=== PATIENT | male | born 1960 | race Caucasian/White ===

== ENCOUNTER 2017-03-01 15:46 | Emergency (ER) | payer BC, SELFPAY | END 2017-03-01 16:49 | disposition home or self-care (01) | PROVIDERS: Emergency Provider Nurse Practitioner Family; Family Provider Family Medicine; Visit Provider Nurse Practitioner Family | DX: J06.9 Acute upper respiratory infection, unspecified (principal); E78.5 Hyperlipidemia, unspecified; E07.9 Disorder of thyroid, unspecified; Z79.899 Other long term (current) drug therapy | CPT/HCPCS: 99201 ==

== ENCOUNTER → 2017-05-17 16:32 | Outpatient (CLI) | payer BC, SELFPAY ==
--- NOTE | 2017-05-17 | XR_ITS ---
XR foot LT min 3V HISTORY: ITS.REASON: PAIN IN LEFT FOOT ORDERING PHYSICIAN: Salbador Triana MD PATIENT AGE: 56 years COMPARISON: None FINDINGS: No fracture or dislocation. No lytic or blastic change. There is normal mineralization.. There is minimal osteoarthritic change at the first metatarsophalangeal joint with mild bony hypertrophy and a small spur along the dorsal and distal aspect of the first metatarsal. Normal alignment. IMPRESSION: Mild osteoarthritic change of the first metatarsophalangeal joint otherwise negative left foot
--- NOTE | 2017-05-17 | XR_ITS ---
XR foot RT min 3V HISTORY: ITS.REASON: PAIN IN RIGHT FOOT ORDERING PHYSICIAN: Salbador Triana MD PATIENT AGE: 56 years COMPARISON: None FINDINGS: No fracture or dislocation. No lytic or blastic change. There is normal mineralization.. Mild osteoarthritic changes are present at the first metatarsophalangeal joint with mild bony spurring and some decrease in the joint space. Normal alignment. IMPRESSION: Mild osteoarthritis of the first metatarsophalangeal joint otherwise negative right
== END ==
PROVIDERS: PCP Family Medicine; Visit Provider Family Medicine
DX: M79.671 Pain in right foot (principal); M79.672 Pain in left foot
CPT/HCPCS: 73630

== ENCOUNTER → 2019-01-06 14:55 | Outpatient (POV) | payer BC, SELFPAY | PROVIDERS: Visit Provider Dermatology | DX: Z00.00 Encounter for general adult medical examination without abnormal findings (principal) ==

== ENCOUNTER → 2019-02-17 15:20 | Outpatient (POV) | payer BC, SELFPAY | PROVIDERS: Visit Provider Dermatology | DX: Z00.00 Encounter for general adult medical examination without abnormal findings (principal) ==

== ENCOUNTER → 2019-03-05 15:51 | Outpatient (CLI) | payer BC, SELFPAY ==
--- NOTE | 2019-03-05 15:55 | XR_ITS ---
PROCEDURE: XR SHOULDER LT MIN 2V CLINICAL INDICATION: LT SHOULDER PAIN COMPARISON: No exams were available for comparison FINDINGS: Minimal osteoarthritic changes are present involving the acromioclavicular joint and glenohumeral joint. There is mild hypertrophic change along the inferior aspect of the distal clavicle with mild subacromial stenosis. No fracture or dislocation IMPRESSION: Mild osteoarthritic change with subacromial stenosis Dictated by: Trae Cordero MD 03/06/2019 18:20 Electronically signed by Trae Cordero MD in [place] 03/06/2019 18:20
== END ==
PROVIDERS: PCP Family Medicine; Visit Provider Family Medicine
DX: M25.512 Pain in left shoulder (principal)
CPT/HCPCS: 73030

== ENCOUNTER → 2019-09-22 15:29 | Outpatient (CLI) | payer BC, SELFPAY ==
--- NOTE | 2019-09-22 15:38 | XR_ITS ---
PROCEDURE: XR CERVICAL SPINE 5V CLINICAL INDICATION: DISORDER OF NECK, PAIN IN LEFT ARM COMPARISON: No exams were available for comparison FINDINGS: Normal alignment. No fracture or dislocation. Small endplate osteophytes are present at C4 and C5 with slight decrease in the disc space at C4-C5 and C5-C6. No obvious foraminal narrowing. IMPRESSION: Mild cervical spondylosis Dictated by: Trae Cordero MD 09/22/2019 16:18 Electronically signed by Trae Cordero MD in [place] 09/22/2019 16:18
== END ==
PROVIDERS: PCP Family Medicine; Visit Provider Family Medicine
DX: M53.82 Other specified dorsopathies, cervical region (principal); M79.602 Pain in left arm
CPT/HCPCS: 72050

== ENCOUNTER → 2019-12-19 09:11 | Outpatient (CLI) | payer BC, SELFPAY ==
--- NOTE | 2019-12-19 | MR_ITS ---
PROCEDURE: MR CERVICAL SPINE WO CON CLINICAL INDICATION: Left-sided neck pain COMPARISON: DX XR CERVICAL SPINE 5V from 09/22/2019 TECHNIQUE: Standard multiplanar multiecho sequences are performed without contrast. 3-D MIP and myelographic images are also rendered and reviewed FINDINGS: There is slight reversal of the cervical lordosis. This could be due to patient positioning or muscle spasm. Craniocervical junction has an unremarkable appearance. C2-C3: Unremarkable. C3-C4: Unremarkable. C4-C5: Minimal spurring anteriorly with minimal uncovertebral hypertrophy on the right and minimal right-sided foraminal narrowing. C5-C6: Unremarkable. C6-C7: Unremarkable. C7-T1: Unremarkable. IMPRESSION: 1. There is straightening/reversal of the normal lordosis which may be due to patient positioning or muscle spasm. 2. Minimal spurring anteriorly at C4-C5 with minimal right-sided uncovertebral hypertrophy and minimal right-sided foraminal narrowing. 3. No canal stenosis or extruded herniated disc. Dictated by: Trae Cordero MD 12/20/2019 10:56 Trae Cordero MD in [place] 12/20/2019 10:56
== END ==
PROVIDERS: PCP Family Medicine; Visit Provider Family Medicine
DX: M53.82 Other specified dorsopathies, cervical region (principal); M79.602 Pain in left arm; M47.812 Spondylosis without myelopathy or radiculopathy, cervical region
CPT/HCPCS: 72141; 76376

== ENCOUNTER → 2020-02-01 07:20 | Outpatient (CLI) | payer BC, SELFPAY ==
[2020-02-01 08:51] LABS: Coronavirus 19 IgG Antibody Negative (Negative); Coronavirus 19 IgM Antibody Negative (Negative)
== END ==
PROVIDERS: Visit Provider Surgery
DX: Z01.818 Encounter for other preprocedural examination (principal); Z12.11 Encounter for screening for malignant neoplasm of colon
CPT/HCPCS: 36415; 86328

== ENCOUNTER 2020-02-02 08:23 | Day surgery (SDC) | payer BC, SELFPAY ==
[2020-01-29 14:29] VITALS: BMI 24.6
[2020-02-02 08:41] VITALS: BP 148/94; PULSE 94; RESP 18; TEMP 36.3; O2SAT 97
--- NOTE | 2020-02-02 09:15 | HMH.ANESCL ---
[facility] Anesthesia Checklist - Patient Identification Patient Identification: Arm Band, Verbal (Name & ) - Structural Data Admitted From: Home Planned Operative Procedure/s: Colonoscopy Consent for Planned Operative Procedure(s) Verified: Yes Verified Documents: Surgical Consent, History and Physical - NPO Status Verified Time NPO: 00:00 - Chart Verification Results Verified: BMP - Additional verifications Anesthesia Reactions: No - Airway Assessment C-Spine Mobility Assessed: Yes TMJ Mobility Assessed: Yes Dentition: Good Dentition - Neurological Assessment Level of Consciousness: Awake, Alert, Appropriate, Follows Commands Hx Seizures: No Numbness or tingling in extremities: No - Anesthesia Plan Anesthesia Risk discussed: Yes Anesthesia Plan: Verified ASA Class: II Anesthesia Type: MAC [facility] History I have reviewed the patient's past medical history: Yes Medical History: Reports:: Hyperlipidemia Denies:: Cancer, Diabetes Mellitus Type 1, Diabetes Mellitus Type 2, Internal Pacemaker, MRSA, Seizures *Have you ever received a pneumonia vaccine?: No *Have you received a flu vaccine this season?: Yes Other Medical History: Reports: Hypothyroidism, Thyroid Disease Anesthesia experience/problems:: None Other Surgeries: Yes: Colonoscopy. No: Pacemaker Amputation: No Fractures: No - *Social History Last grade of school completed: Advanced degree Smoking Status: Never smoker Alcohol Intake: current Alcohol Intake Frequency:: a few times a week Substance Use Type: denies use *Occupational Status:: employed Housing: house Household Members: none *Travel in the last 8 weeks: None Family Hx:: No significant family history
[2020-02-02 09:45] VITALS: O2SAT 97
[2020-02-02 10:08] VITALS: BP 103/68; PULSE 86; RESP 12; TEMP 36.4; O2SAT 96
--- NOTE | 2020-02-02 10:08 | HMH.SCOPE ---
- Procedure: Date: 02/02/20 Patient Date of :: 1960 Procedure Performed:: Total colonoscopy to terminal ileum Indications:: Patient is a 59-year-old male referred by Salbador Triana MD for follow-up colonoscopy. I performed his initial colonoscopy in 2013. He had some biopsies performed. He does have a family history of colon cancer in his grandmother. I recommended 5-year follow-up colonoscopy. He is without complaints. Performing Provider:: Kavon Gómez MD Referring Provider:: Salbador Triana MD Sedation:: MAC sedation Procedure:: Patient was taken to the endoscopy procedure room. He was positioned in a lateral decubitus position. Adequate intravenous sedation was achieved with anesthesia titration of propofol. Digital examination was performed which revealed normal sphincter tone and unremarkable prostate. Variable stiffness Olympus colonoscope was inserted via the anus. It was advanced to the cecum. Colonic preparation was good and visualization was good. Ileocecal valve and appendiceal orifice were clearly identified. Colonoscope was advanced a short distance into the terminal ileum which is grossly normal. Colonoscope was slowly withdrawn through the colon with careful surveillance. He had some degree of pandiverticulosis with most significant diverticulosis in the sigmoid colon. At about 35 cm from the anal verge there was noted to be diverticulum with impacted stool which appeared noninflamed. Colonoscope was withdrawn into the rectum and retroflexion revealed internal anal papillae but no pathologic internal hemorrhoids. Colonoscope was withdrawn. Findings:: Diverticulosis Recommendations:: Likely repeat colonoscopy 5 years given family history Complications:: None immediately apparent Estimated blood obtained (mL): 0
[2020-02-02 10:18] VITALS: BP 120/69; PULSE 86; RESP 16; O2SAT 97
[2020-02-02 10:28] VITALS: BP 139/85; PULSE 80; RESP 16; O2SAT 98
[2020-02-02 10:38] VITALS: BP 145/96; PULSE 76; RESP 16; TEMP 36.4; O2SAT 98
== END 2020-02-02 10:40 | disposition home or self-care (01) ==
LOC: OUTP 08:24
PROVIDERS: PCP Family Medicine; Visit Provider Surgery
PROC: 0DJD8ZZ Inspection of Lower Intestinal Tract, Via Natural or Artificial Opening Endoscopic (ICD-10-PCS; CPT 45378; principal; 2020-02-02 09:30)
DX: Z12.11 Encounter for screening for malignant neoplasm of colon (principal); K57.30 Diverticulosis of large intestine without perforation or abscess without bleeding
CPT/HCPCS: 45378

== ENCOUNTER → 2020-03-15 11:01 | Outpatient (POV) | payer BC, SELFPAY | PROVIDERS: Visit Provider Dermatology | DX: Z00.00 Encounter for general adult medical examination without abnormal findings (principal) ==

== ENCOUNTER 2020-03-16 14:00 | Outpatient (RCR) | payer BC, SELFPAY | END 2020-03-16 14:05 | disposition home or self-care (01) | LOC: PT 14:00 | PROVIDERS: PCP Family Medicine; Visit Provider Family Medicine | DX: M48.02 Spinal stenosis, cervical region; M53.82 Other specified dorsopathies, cervical region; M47.812 Spondylosis without myelopathy or radiculopathy, cervical region | CPT/HCPCS: 97010; 97012; 97014; 97110; 97163; G0283 ==

== ENCOUNTER 2020-03-23 17:34 | Emergency (ER) | payer BC, SELFPAY ==
[2020-03-23 17:35] VITALS: BP 158/105; PULSE 116; RESP 16; TEMP 36.7; O2SAT 98; BMI 25.0
--- NOTE | 2020-03-23 18:03 | HMH.EDUTC ---
[facility] [place] Clinical Impression: Exposure to COVID-19 virus Sinusitis Qualifiers: Sinusitis location: unspecified location Chronicity: acute Recurrence: non-recurrent Qualified Code(s): J01.90 - Acute sinusitis, unspecified Disposition: Home, Self-Care Condition on Discharge: Good Instructions: Sinusitis, DI for Sinusitis, DI for COVID-19 (Suspected or Confirmed ), Preventing the Spread of Coronavirus Discharge Instructions Additional Instructions: Drink plenty of fluids. Take tylenol or ibuprofen for pain or fever. Take the medications as directed. Follow up with your regular doctor. GO TO THE ER FOR ANY WORSENING SYMPTOMS Prescriptions: Benzonatate [Tessalon Perle 100mg Cap] 100 mg PO TIDP PRN #30 cap PRN Reason: Cough Transmission Status: Received by [facility] Azithromycin [Z-Vic 250mg Tab*] 250 mg PO UD DOSE PK #6 tab Transmission Status: Re[facility] by [facility] Referrals: Salbador Triana MD [Primary Care Provider] - Time of Disposition: 18:16 Medical Decision Making - Medical Records Medical records reviewed: No: I reviewed the patient's medical records. - Loyd Inquiry Pt receiving controlled substance: No Vital Signs: 03/23/20 17:35 03/23/20 18:22 Temperature 98.1 F 98.1 F Temperature Source Oral Oral Pulse Rate 116 H Pulse Rate [Right] 116 H Respiratory Rate 16 16 Blood Pressure 158/105 H Blood Pressure [Right Arm] 158/105 H Blood Pressure Mean [Right Arm] 122 02 Sat by Pulse Oximetry 98 Oxygen Delivery Method Room Air [facility] [place] - General Stated complaint: Achy;Fever earlier;Cough Time Seen by Provider: 03/23/20 18:03 Mode of Arrival: Ambulatory Source of Information: Patient Description of Symptoms (Recalled from Triage Doc. by RN): pt request Covid test. pt c/o fever and fatigue HEENT Symptoms (Recalled from RN notes): No Resp Symptoms (Recalled from RN notes): Yes Skin Symptoms (Recalled from RN notes): No MS Symptoms (Recalled from RN notes): No Functional Status (Recalled from RN notes): wnl - History of Present Illness Provider Complaint: He states that since yesterday he has had low grade fever, chills, scratchy sore throat and sinus congestion. - Related Data Home Medications Medication Instructions Recorded Confirmed atorvastatin 40 mg tablet 40 mg PO DAILY tab 01/08/20 01/29/20 levothyroxine 50 mcg tablet 50 mcg PO DAILY tab 01/08/20 01/29/20 Sodium, Potassium,Mag Sulfates See Rx Instructions PO .COMPLEX 01/29/20 01/29/20 [Suprep Bowel Prep Kit] Previous Rx's Medication Instructions Recorded Azithromycin [Z-Vic 250mg Tab*] 250 mg PO UD DOSE PK #6 tab 03/23/20 Benzonatate [Tessalon Perle 100mg 100 mg PO TIDP PRN #30 cap 03/23/20 Cap] Allergies Allergy/AdvReac Type Severity Reaction Status Date / Time No Known Allergies Allergy Verified 01/29/20 14:29 - Worker's Comp Is this a Worker's Comp case?: No Is this an H Worker's Comp?: No Is this a Melva Worker's Comp?: No [facility] History - Hepatitis A Screen Drug use history?: No High risk sexual behaviors?: No History of sexually transmitted infection?: No Currently employed?: No Childcare worker?: No Do you have indoor plumbing?: Yes Do you have electricity?: Yes Attestation statement:: This patient has been screened for Hepatitis A risk factors. I have reviewed the patient's past medical history: Yes Medical History: Reports:: Hyperlipidemia Denies:: Cancer, Diabetes Mellitus Type 1, Diabetes Mellitus Type 2, Internal Pacemaker, MRSA, Seizures Other Medical History: Reports: Hypothyroidism, Thyroid Disease Other Surgeries: Yes: Colonoscopy. No: Pacemaker Amputation: No Fractures: No - Social History Smoking Status: Never smoker Alcohol Intake: current Alcohol Intake Frequency:: a few times a week Substance Use Type: denies use Occupational Status: employed Housing: house Household Members: none Family Hx:: No significant fam
[2020-03-23 18:22] VITALS: BP 158/105; PULSE 116; RESP 16; TEMP 36.7; O2SAT 98
--- NOTE | 2020-03-24 09:20 | PC.NURSE ---
patient informed of positive covid test
== END 2020-03-23 18:23 | disposition home or self-care (01) ==
PROVIDERS: Emergency Provider Nurse Practitioner Family; PCP Family Medicine
DX: U07.1 COVID-19 (principal); J01.90 Acute sinusitis, unspecified; E78.5 Hyperlipidemia, unspecified; E03.9 Hypothyroidism, unspecified; Z79.899 Other long term (current) drug therapy
CPT/HCPCS: 99202; G0463; U0003

== ENCOUNTER → 2020-11-15 16:08 | Outpatient (POV) | payer BC, SELFPAY | PROVIDERS: Visit Provider Dermatology | DX: Z00.00 Encounter for general adult medical examination without abnormal findings (principal) ==

== ENCOUNTER → 2020-12-15 14:47 | Outpatient (CLI) | payer BC, SELFPAY | PROVIDERS: PCP Family Medicine; Visit Provider Nurse Practitioner | DX: Z20.822 Contact with and (suspected) exposure to COVID-19 (principal) | CPT/HCPCS: C9803; U0003; U0005 ==

== ENCOUNTER → 2021-08-01 15:11 | Outpatient (POV) | payer BC, SELFPAY | PROVIDERS: Visit Provider Dermatology | DX: Z00.00 Encounter for general adult medical examination without abnormal findings (principal) ==

== ENCOUNTER 2021-12-28 15:00 | Outpatient (RCR) | payer BC, SELFPAY | END 2021-12-28 15:05 | disposition home or self-care (01) | LOC: OT 15:00 | PROVIDERS: PCP Family Medicine; Visit Provider Orthopaedic Surgery Adult Reconstructive Orthopaedic Surgery | DX: M75.101 Unspecified rotator cuff tear or rupture of right shoulder, not specified as traumatic (principal); M25.511 Pain in right shoulder | CPT/HCPCS: 97010; 97014; 97110; 97140; 97164; 97166; G0283 ==

== ENCOUNTER 2022-02-02 14:42 | Emergency (ER) | payer BC, SELFPAY ==
--- NOTE | 2022-02-02 15:09 | EXP.UTC ---
Discharge Plan Disposition Patient Disposition: Home, Self-Care Condition: Good Prescriptions Prescriptions: New benzonatate [benzonatate] 100 mg capsule 100 mg PO TIDP PRN (Reason: Cough) Qty: 30 0RF oseltamivir [Tamiflu] 75 mg capsule 75 mg PO BID Qty: 10 0RF ondansetron 4 mg Tablet,Disintegrating 4 mg PO Q8H PRN (Reason: Nausea) Qty: 12 0RF No Action levothyroxine 50 mcg tablet 50 mcg PO DAILY atorvastatin 40 mg tablet 40 mg PO DAILY sodium,potassium,mag sulfates 177 ML recon soln See Rx Instructions PO .COMPLEX Rx Instructions: DILUTE; drink full amount early evening before AND next morning at least 2 hr before procedure; follow w 960 mL water PO azithromycin 250 MG tablet 250 mg PO UD DOSE PK Qty: 6 0RF Rx Instructions: Take two (2) tablets today, then one (1) tablet days #2 thru #5 benzonatate 100 MG capsule 100 mg PO TIDP PRN (Reason: Cough) Qty: 30 0RF Referrals Follow up/Referrals: Jg Arellano MD [Primary Care Provider] - See instructions Activity Restrictions/Add. Instructions Additional Instructions/Restrictions: Drink plenty of fluids. Take tylenol or ibuprofen for pain or fever. Take the medications as directed. Follow up with your regular doctor. GO TO THE ER FOR ANY WORSENING SYMPTOMS Clinical Impressions Clinical Impression: Influenza A Instructions Patient Instructions: DI for Influenza -- Adult, Oseltamivir Discharge ED Provider: Ty Montez [facility] General Stated complaint: covid test Time Seen by Provider: 02/02/22 15:09 History of Present Illness Provider Complaint: He states that for the past 1 day he has had body aches, chills, fever and malaise. Related Data Home Medications Medication Instructions Recorded Confirmed atorvastatin 40 mg tablet 40 mg PO DAILY Cholesterol 01/08/20 01/29/20 levothyroxine 50 mcg tablet 50 mcg PO DAILY thyroid 01/08/20 01/29/20 sodium,potassium,mag sulfates 17.5 See Rx Instructions PO .COMPLEX 01/29/20 01/29/20 gram-3.13 gram-1.6 gram oral soln bowel prep Previous Rx's Medication Instructions Recorded azithromycin 250 mg tablet 250 mg PO UD DOSE PK #6 tabs 03/23/20 benzonatate 100 mg capsule 100 mg PO TIDP PRN Cough #30 caps 03/23/20 benzonatate 100 mg capsule 100 mg PO TIDP PRN Cough #30 caps 02/02/22 ondansetron 4 mg disintegrating 4 mg PO Q8H PRN Nausea #12 tabs 02/02/22 tablet oseltamivir 75 mg capsule (Tamiflu) 75 mg PO BID #10 caps 02/02/22 Allergies Allergy/AdvReac Type Severity Reaction Status Date / Time No Known Allergies Allergy Verified 02/02/22 15:21 PFSH [facility] Social History Smoking Status: Never smoker alcohol intake: current substance use type: denies use current occupational status: employed Travel in the last 8 weeks: None household members: none housing: house current occupation: maintenance caffeine: Yes ROS Obtained: Yes All systems reviewed & no additional complaints except as documented Constitutional Constitutional: Reports chills and Reports fever(s) Eyes Eyes: Denies eye discharge ENT Ears, Nose, Mouth, and Throat: Reports as per HPI Cardiovascular Cardiovascular: Denies chest pain Respiratory Respiratory: Denies shortness of breath, Reports chest congestion, Reports cough, Denies stridor and Denies wheezing Gastrointestinal Gastrointestingal: Reports nausea; Denies abdominal pain, constipation, cramping, diarrhea or vomiting Musculoskeletal Musculoskeletal: Denies arthralgias Integumentary/Breasts Skin/Breast: Denies rash Neurologic Neurologic: Denies paresthesias Allergic/Immunologic Allergic/Immunologic: Denies wheezing Physical Exam General General appearance: alert and in no apparent distress Head Head exam: atraumatic, normocephalic and normal inspection Eye Eye exam: Present normal appearance, PERRL and EOMI ENT ENT exam:
[2022-02-02 15:19] VITALS: BP 151/90; PULSE 88; RESP 16; TEMP 37.4; O2SAT 98; BMI 26.9
[2022-02-02 15:29] LABS: UTC Strep Screen (Rapid) Negative (Negative)
[2022-02-02 15:30] LABS: UTC Influenza A Antigen Positive (Negative); UTC Influenza B Antigen Negative (Negative)
[2022-02-02 16:00] VITALS: BP 151/90; PULSE 88; RESP 16; TEMP 37.4
== END 2022-02-02 16:04 | disposition home or self-care (01) ==
PROVIDERS: Emergency Provider Nurse Practitioner Family; PCP Family Medicine
DX: J10.1 Influenza due to other identified influenza virus with other respiratory manifestations (principal)
CPT/HCPCS: 87804; 87880; 99212; C9803; G0463; U0003; U0005

== ENCOUNTER 2022-05-21 11:00 | Outpatient (RCR) | payer BC, SELFPAY | END 2022-05-21 11:05 | disposition home or self-care (01) | LOC: PT 11:00 | PROVIDERS: PCP Family Medicine; Visit Provider Orthopaedic Surgery Adult Reconstructive Orthopaedic Surgery | DX: S83.241A Other tear of medial meniscus, current injury, right knee, initial encounter (principal); M25.561 Pain in right knee | CPT/HCPCS: 97010; 97014; 97016; 97110; 97112; 97140; 97163; 97164; 97530; G0283 ==

== ENCOUNTER → 2023-02-22 15:58 | Outpatient (CLI) | payer BC, SELFPAY ==
--- NOTE | 2023-02-22 16:05 | XR_ITS ---
PROCEDURE INFORMATION: Exam: XR Lumbosacral Spine Exam date and time: 02/22/2023 4:11 PM Age: 62 years old Clinical indication: Low back pain; Additional info: Acute right sided low back pain TECHNIQUE: Imaging protocol: Radiologic exam of the lumbosacral spine. Views: 4 or 5 views. COMPARISON: No relevant prior studies available. Intervertebral disc space FINDINGS: Bones/joints: Intervertebral disc space Narrowing L5/S1 consistent with degenerative disc disease. No acute fracture or dislocation. . Anterior osteophyte formation L1 through S1 Soft tissues: Unremarkable. IMPRESSION: 1. Intervertebral disc space Narrowing L5/S1 consistent with degenerative disc disease. 2. No acute fracture or dislocation. .
== END ==
PROVIDERS: PCP Family Medicine; Visit Provider Family Medicine
DX: M54.50 Low back pain, unspecified (principal); M51.9 Unspecified thoracic, thoracolumbar and lumbosacral intervertebral disc disorder
CPT/HCPCS: 72110

== ENCOUNTER 2024-02-27 15:19 | Outpatient (CLI) | payer BC, SELFPAY | END 2024-02-27 23:59 | disposition home or self-care (01) | LOC: LAB.DROPOF 02-28 11:16 | PROVIDERS: PCP Student in an Organized Health Care Education/Training Program; Visit Provider Student in an Organized Health Care Education/Training Program | DX: J02.9 Acute pharyngitis, unspecified (principal) | CPT/HCPCS: 87070 ==

== ENCOUNTER 2025-01-29 07:09 | Day surgery (SDC) | payer BC, SELFPAY ==
[2025-01-27 17:15] VITALS: BMI 27.3
--- NOTE | 2025-01-29 06:01 | EXP.GEN.HP ---
HPI HPI HPI: Patient is a 64-year-old male. Primary care provider is Salbador Triana MD. I had performed initial screening colonoscopy in 2013. He has a family history of colon cancer in his grandmother. I performed follow-up colonoscopy 02/02/2020. He was found to have some degree of pandiverticulosis most significant in the sigmoid colon. There were no notable polyps. Given the family history 5-year follow-up colonoscopy was recommended. . [facility] Disclaimer: The information contained in this section may have been updated after the patient was seen, as this information can be updated by other users. Medical History History of cataract Alcohol use Former smoker Seasonal allergies History of thyroid disease HLD (hyperlipidemia) HTN (hypertension) Abnormal electrocardiogram [ECG] [EKG] Surgical History H/O knee surgery S/P rotator cuff repair Family History Brother Coronary artery disease, Onset Age: 50 CAD with ISIAH Social History Smoking Status: Never smoker alcohol intake: current alcohol intake frequency: a few times a week substance use type: denies use current occupational status: employed Travel in the last 8 weeks?: None household members: none housing: house current occupation: maintenance caffeine: Yes Have you lived/traveled outside [place] in past 30 days?: No Contact w/someone who lives/traveled outside US past 30 days?: No Exposure to someone with infectious disease in past 14 days?: No Do you have a fever (greater than 100.4 F or 38 C)?: No Have you tested positive for COVID-19?: No Exposed to someone with COVID-19 in past 14 days?: No Do you have a sore throat?: No Do you have a cough?: No Do you have any weakness?: No Do you have any diarrhea?: No Are you experiencing any unusual bleeding?: No Do you have any muscle aches/pain?: No Do you have any abdominal pain?: No Are you experiencing loss of taste or smell?: No Other Medical History Have you received the Flu Vaccine for this season: Yes Have you received the Pneumonia Vaccine: No Meds Home Medications and Allergies Home Medications ?Medication ?Instructions ?Recorded ?Confirmed ?Type levothyroxine 50 mcg tablet 50 mcg PO DAILY 03/14/23 01/29/25 History (Synthroid) atorvastatin 40 mg tablet 40 mg PO DAILY Cholesterol #90 tabs 10/27/24 01/29/25 Rx metoprolol succinate 50 mg 100 mg (2 x 50 mg) PO DAILY #90 10/27/24 01/29/25 Rx tablet,extended release 24 hr tabs valsartan 160 mg tablet 160 mg PO DAILY #90 tabs 10/27/24 01/29/25 Rx sodium,potassium,mag sulfates 17.5 See Rx Instructions PO .COMPLEX 01/01/25 Rx gram-3.13 gram-1.6 gram oral soln #354 mL (Suprep Bowel Prep Kit) allopurinol 100 mg tablet 100 mg PO DAILY 01/27/25 01/29/25 History New Prescriptions to Start Prescriptions: Allergies Allergy/AdvReac Type Severity Reaction Status Date / Time No Known Allergies Allergy Verified 01/29/25 07:49 Exam Data for Last 24 hours I & O for Last 24 hours: Intake & Output 01/26/25 01/27/25 01/28/25 01/29/25 11:59 11:59 11:59 11:59 Weight 180 lb Constitutional Constitutional: no acute distress *Routine HEENT Exam Head: Present normocephalic Eye: Present EOMI and PERRL ENT: Present mucous membranes moist *Routine Neck Exam Neck: Present supple; Absent lymphadenopathy *Routine Respiratory Exam Respiratory: Present CTA bilaterally *Routine Cardiovascular Exam Cardiovascular: Present RRR *Routine Abdominal Exam Abdominal: Present soft and normoactive bowel sounds; Absent tenderness *Routine Rectal Exam Rectal:: deferred *Routine Genitalia Exam Genitalia:: deferred *Routine Extremities Exam Extremities: Absent cyanosis, clubbing or edema *Routine Skin Exam Skin: Present warm; Absent rash *Routine Neurological Exam Neurological: Present alert and oriented X3 Assessment and Plan *Assessment and plan (1) Family history of colon cancer: Status: Acute Category: Medical Code(s): Z80.0 - Family history of malignant neoplasm of digestive organs Plan Colonoscopy
[2025-01-29 07:50] VITALS: BP 137/86; PULSE 86; RESP 16; TEMP 36.4; O2SAT 96
[2025-01-29] MEDS: LACTATED RINGERS 1000ML 1,000 ML 50 ML IV (08:00)
--- NOTE | 2025-01-29 08:51 | HMH.SCOPE ---
Procedure: Date: 01/29/25 Patient Date of :: 1960 Procedure Performed:: Total colonoscopy to terminal ileum Indications:: Patient is a 64-year-old male. Primary care provider is Salbador Triana MD. I had performed initial screening colonoscopy in 2013. He has a family history of colon cancer in his grandmother. I performed follow-up colonoscopy 02/02/2020. He was found to have some degree of pandiverticulosis most significant in the sigmoid colon. There were no notable polyps. Given the family history 5-year follow-up colonoscopy was recommended. . Performing Provider:: Kavon Gómez MD Referring Provider:: Salbador Triana MD Sedation:: MAC sedation Procedure:: Patient history was obtained and appropriate physical examination was performed. Patient's medications and allergies were reviewed. Informed consent was obtained after explaining the benefits, alternatives, and risks of the procedure including, but not limited to, bleeding, perforation, missed lesions, and adverse reaction to anesthesia medications. Patient was transported to endoscopy procedure room. Patient was connected to monitoring devices. Throughout the procedure the patient's blood pressure, pulse, and oxygen saturations were monitored continuously. Patient identification and planned procedure were verified by the staff. Patient was positioned in lateral decubitus position. Digital anorectal exam was performed. Variable stiffness Olympus colonoscope was inserted and advanced under direct visualization to the cecum. Adequacy of the colonic preparation was noted. The colonoscope was advanced a short distance into the terminal ileum. The colonoscope was then slowly withdrawn while carefully examining the color, texture, anatomy, and integrity of the mucosoa circumferentially. Within the rectum retroflexion was performed. Colonoscope was then withdrawn. Impression: Preparation was good. There was some degree of pandiverticulosis with diverticuli throughout the colon most pronounced in the sigmoid colon. Retroflexion revealed internal anal papillae. There were no obvious polyps. Findings:: Pandiverticulosis Recommendations:: Repeat colonoscopy 7 years given prior history of tubular adenoma and family history of colon cancer Complications:: None immediately apparent Estimated blood obtained (mL): 0 Colonoscopy Component Colonoscopy Component Was a colonoscopy performed during today's procedure?: Yes Recommended follow up colonoscopy of at least 10 years?: No If no, follow up colonoscopy recommended in ___ years?: See above Reason for not recommending >/= 10 yr follow-up interval?: See above
[2025-01-29 08:55] VITALS: BP 90/58; PULSE 70; RESP 20; TEMP 36.3; O2SAT 95
[2025-01-29 09:05] VITALS: BP 117/80; PULSE 67; RESP 20; TEMP 36.3; O2SAT 97
[2025-01-29 09:15] VITALS: BP 126/89; PULSE 54; RESP 18; TEMP 36.3; O2SAT 98
[2025-01-29 09:25] VITALS: BP 146/92; PULSE 54; RESP 18; TEMP 36.3; O2SAT 99
== END 2025-01-29 09:32 | disposition home or self-care (01) ==
PROVIDERS: PCP Family Medicine; Visit Provider Surgery
PROC: 0DJD8ZZ Inspection of Lower Intestinal Tract, Via Natural or Artificial Opening Endoscopic (ICD-10-PCS; CPT 45378; principal; 2025-01-29 08:30)
DX: K57.30 Diverticulosis of large intestine without perforation or abscess without bleeding (principal); K62.89 Other specified diseases of anus and rectum; Z87.891 Personal history of nicotine dependence; E78.5 Hyperlipidemia, unspecified; I10 Essential (primary) hypertension; Z86.39 Personal history of other endocrine, nutritional and metabolic disease; Z79.890 Hormone replacement therapy; Z79.899 Other long term (current) drug therapy
CPT/HCPCS: 45378; J2003; J2704; J7120